=== PATIENT | male | born 1985 | race Caucasian/White ===

== ENCOUNTER 2023-07-31 08:40 | Emergency (ER) | payer OTHER, SELFPAY ==
--- NOTE | ~2023-07-31 | XR_ITS ---
Clinical Indication: Chest pain PA and lateral views of the chest: Comparison: None Findings: The lungs are clear, without evidence of focal consolidation or pleural effusion. Cardiome diastinal silhouette is within normal limits. Bones and soft tissues are unremarkable. Impression: Normal chest. Reviewed, dictated and finalized at [facility]. LINE REPAIRER Impression: Normal chest.
--- NOTE | 2023-07-31 08:43 | ED.SOB ---
HPI - SOB/Dyspnea General Chief Complaint: Chest Pain Stated Complaint: SOB/Chest Wall Pain Time Seen by Provider: 07/31/23 08:43 Source: patient Mode of arrival: ambulatory Limitations: no limitations History of Present Illness HPI Narrative: Donald is a 38-year-old male patient presenting to the clinic today with complaints of shortness of breath and right-sided chest pain. He reports that the right-sided chest pain is intermittent and is sharp in nature. He can have pain during rest and activity. Rates his pain currently a 4/10. No radiation of pain down his arms or into his jaw. He does reports some chest heaviness associated with this. Was seen in the ER at [facility] and had a full cardiac workup on Sunday and it was normal per patient. States that they did an EKG, labs, and chest x-ray at that time. They told him to go home and take aspirin. Has not been taking ASA. He does have a follow-up appointment with his PCP next Sunday. He is also supposed to reach out to a water mangle tender to discuss getting a stress test. Denies any URI symptoms but states he had a cough and URI about 2 weeks ago. At that time he was bringing up some phlegm with coughing. He denies any fever. He smokes weed but does not smoke cigarettes or vape nicotine. No history of high blood pressure, hypercholesterolemia, prior cardiac history, GERD, pneumonia, bronchitis, or asthma. Related Data Home Medications Medication Instructions Recorded Confirmed No Home Medications 07/31/23 07/31/23 Allergies Allergy/AdvReac Type Severity Reaction Status Date / Time No Known Allergies Allergy Verified 07/31/23 09:07 Review of Systems Review of Systems: Pertinent positives per HPI. Patient denies any fever, chills, rash, headache, visual changes, dizziness, cough, runny nose, sore throat, palpitations, nausea, vomiting, diarrhea, constipation, abdominal pain, or any urinary issues. PMFSH Comments At the time of my signature, I reviewed and agree with the nursing past medical, surgical, social, and family history. There is no relevant family history pertinent to the patient complaint. Exam Narrative: General: Well-developed, overweight, in no apparent distress Head: Normocephalic, atraumatic Eyes: Pupils equally round and reactive to light bilaterally, EOM intact, sclera and conjunctive clear, no discharge, lids normal Ears: TMs intact and congested, ear canals clear, no drainage, grossly hearing normal. Nose: Nares patent, no discharge, no inflammation, no sinus tenderness. Mouth: Oropharynx without lesions or masses, good dentition, MMM. Neck: Supple, trachea midline, no enlargement of anterior or posterior cervical nodes, no thyroid masses or goiter palpable. Chest: Symmetric, even rise and fall with respirations, nontender to palpation to the right chest wall Cardio: Regular rate and rhythm, s1 and s2 normal, no murmur appreciated. Resp: Clear to auscultation bilaterally anteriorly and posteriorly, no rhonchi, rales, wheezing or rubs Course Course Emergency Course: Portions of this record may have been created with voice recognition software. Level of Care: Express Care Visit Vital Signs Vital signs: Vital signs reviewed MDM - SOB/Dyspnea MDM Narrative Medical decision making narrative: At the time of visit patient is resting comfortably on the exam table. Patient appears to be nontoxic. EKG was performed shows sinus rhythm with a possible incomplete right bundle-branch block with heart rate of 61 beats per minute without any other ectopy. No ST elevations/depressions noted, no T-wave inversion noted. Chest x-ray was performed and was negative in the clinic today. Offer to send patient to the ER for blood work however he declined at this time. Reports that if the EKG and chest x-ray are normal he would like to go home and start taking aspirin and follow-up with the water mangle tender and his PCP. Supportive measures w
[2023-07-31 08:57] VITALS: BP 137/99; PULSE 92; RESP 16; TEMP 37.4; O2SAT 99
--- NOTE | 2023-07-31 11:42 | ECG_ITS ---
Measurements Intervals [place] Rate: 61 P: 37 TX: 144 QRS: -2 QRSD: 117 T: 13 QT: 383 QTc: 388 Interpretive Statements SINUS RHYTHM INCOMPLETE RIGHT BUNDLE BRANCH BLOCK MINIMAL Q WAVES- HIGH LATERAL LEADS BASELINE ARTIFACT- I, II, III, AVR, AVL, AVF, V1-V3 BORDERLINE ECG NO PREVIOUS ECG AVAILABLE FOR COMPARISON Electronically Signed On 07-31-2023 12:51:43 INDUSTRIAL RECRU[employer] by Peter Lee D.O.
== END 2023-07-31 09:48 | disposition home or self-care (01) ==
PROVIDERS: Emergency Provider Nurse Practitioner Family
DX: R07.89 Other chest pain (principal); R06.02 Shortness of breath; F17.210 Nicotine dependence, cigarettes, uncomplicated
CPT/HCPCS: 71046; 93005; 99203; G0463